=== PATIENT | female | born 1970 | race Two or more races ===

== ENCOUNTER 2017-11-26 01:43 | Emergency (ER) | payer MEDICAID ==
[~2017-11-26] VITALS: Ht 157.5 cm; Wt 60.3 kg
[2017-11-26] MEDS ORDERED: NKM (01:52)
[2017-11-26] MEDS ORDERED: Dexamethasone 4mg/ml vial IVP ONE (02:00)
[2017-11-26] MEDS ORDERED: Acetaminophen 500mg (ES) tab ORAL ONE (02:00)
[2017-11-26] MEDS ORDERED: Ketorolac 30mg Inj IV ONE (02:00)
[2017-11-26] MEDS ORDERED: cefTRIAXone 1 GM in NS 55 ML IVPB ONE (02:00)
--- NOTE | 2017-11-26 02:02 | Emergency Room Report ---
History of Present Illness General Chief Complaint: Fever Source: Patient Present Illness HPI Is a 47-year-old female with no significant past medical history. She presents with chief complaint of fever, headache, sore throat. Onset this afternoon. Pain is 10 out of 10. Worse with swallowing. No cough congestion. No nausea no vomiting. No diarrhea. No sick contact. Allergies: Coded Allergies: No Known Allergies (Unverified , 11/26/17) Patient History Past Medical History: none, see triage record, old chart reviewed Past Surgical History: none Pertinent Family History: none Social History: Denies: smoking Last Menstrual Period: 10/31/17 Now: No Immunizations: other Reviewed Nursing Documentation: PMH: Agreed; PSxH: Agreed Nursing Documentation-PMH Past Medical History: No Stated History Review of Systems Constitutional: Reports: fever Eye: Denies: eye pain, blurred vision ENT: Reports: throat pain; Denies: ear pain, nose congestion, throat swelling Respiratory: Denies: cough, shortness of breath Cardiovascular: Denies: chest pain, palpitations Gastrointestinal: Denies: abdominal pain, diarrhea, nausea, vomiting Musculoskeletal: Denies: back pain, joint pain Skin: Denies: rash Neurological: Reports: headache; Denies: numbness Endocrine: Denies: increased thirst, increased urine Hematologic/Lymphatic: Denies: easy bruising All Other Systems: negative except mentioned in HPI Physical Exam Vital Signs Date Time Temp Pulse Resp B/P (MAP) Pulse Ox O2 Delivery O2 Flow Rate FiO2 11/26/17 01:47 98.8 133 22 128/73 96 Room Air 98.8 vitals with tachycardia Sp02 EP Interpretation: reviewed, normal General Appearance: well appearing, no apparent distress, alert Head: normocephalic, atraumatic Eyes: bilateral eye PERRL, bilateral eye EOMI ENT: hearing grossly normal, tonsillar swelling, pharyngeal erythema, tonsillar exudate, other - No trismus Neck: full range of motion, supple, no meningismus, other - Cervical adenopathy and tenderness Respiratory: chest non-tender, lungs clear, normal breath sounds Cardiovascular #1: regular rate, rhythm, no murmur Gastrointestinal: normal bowel sounds, non tender, no mass, no organomegaly, no bruit, non-distended Musculoskeletal: back normal, gait/station normal, normal range of motion Neurologic: alert, oriented x3 Psychiatric: mood/affect normal Skin: warm/dry, other - Warm to the touch Medical Decision Making Diagnostic Impression: Primary Impression: Acute tonsillitis Qualified Codes: J03.90 - Acute tonsillitis, unspecified ER Course Patient presents with fever and exudative tonsillitis. By [facility] criteria, she probably has strep tonsillitis. No evidence of retropharyngeal abscess, peritonsillar abscess or Jose L angina. She felt better now. We'll discharge home. Dose of antibiotics given here. Last Vital Signs Date Time Temp Pulse Resp B/P (MAP) Pulse Ox O2 Delivery O2 Flow Rate FiO2 11/26/17 01:47 98.8 133 22 128/73 96 Room Air 98.8 Status: improved Disposition: HOME, SELF-CARE Condition: Stable Scripts Amoxicillin/Potassium Clav 875-125* (AUGMENTIN 875-125 TABLET*) 1 Each Tablet 1 TAB ORAL TWICE A DAY, #14 TAB Prov: TALA ARRIOLA M.D. 11/26/17 Ibuprofen* (MOTRIN*) 600 Mg Tablet 600 MG ORAL THREE TIMES A DAY, #30 TAB 0 Refills Prov: TALA ARRIOLA M.D. 11/26/17 Additional Instructions: follow-up with your DrBryce In 2-3 days. Increase fluids. Salt water gargle. Return if worse. TALA ARRIOLA M.D. Nov 26, 2017 02:02
[2017-11-26 02:10] VITALS: BP 128/73
[2017-11-26] MEDS ORDERED: AUGMENTIN 875-1 EAC1 ORAL (02:54)
[2017-11-26] MEDS ORDERED: IBUPROFEN600 MG ORAL (02:54)
[2017-11-26 03:02] VITALS: BP 110/52
[2017-11-26 03:03] VITALS: BP 110/52
== END 2017-11-26 03:04 | disposition home or self-care (01) ==
LOC: EMR 02:02
DX: J03.90 Acute tonsillitis, unspecified (principal)
CPT/HCPCS: 96374; 96375; 96376; 99284; J0696; J1100; J1885; 96360

== ENCOUNTER 2018-05-25 01:24 | Emergency (ER) | payer MEDICAID ==
[~2018-05-25] VITALS: Ht 165.1 cm; Wt 67.6 kg
[~2018-05-25 01:24] MED LIST: AUGMENTIN 875-1 EAC1 ORAL; IBUPROFEN600 MG ORAL; NKM
[2018-05-25 01:30] VITALS: BP 134/88
[2018-05-25] MEDS ORDERED: IRON159 MG PO (01:37)
[2018-05-25] MEDS ORDERED: DiphenhydrAMINE 50mg/ml Inj IVP ONE (01:45)
--- NOTE | 2018-05-25 01:46 | Emergency Room Report ---
History of Present Illness General Chief Complaint: Allergic Reaction Source: Patient Present Illness HPI Patient 47-year-old female presented after increased facial swelling and generalized body rash. Patient reports having recently been taking ibuprofen as well as iron. She reports having similar symptoms multiple times for the past month. She denies any vomiting. She denies any difficulty breathing. She reports having increased lip swelling.The patient not currently taking any antihistamines. Allergies: Coded Allergies: No Known Allergies (Unverified , 11/26/17) Patient History Last Menstrual Period: 05/02/2018 Now: No Reviewed Nursing Documentation: PMH: Agreed; PSxH: Agreed Nursing Documentation-PMH Past Medical History: No History, Except For Hx Cardiac Problems: No - iron anemia Review of Systems All Other Systems: negative except mentioned in HPI Physical Exam Vital Signs Date Time Temp Pulse Resp B/P (MAP) Pulse Ox O2 Delivery O2 Flow Rate FiO2 05/25/18 01:32 98.1 103 16 124/64 100 Room Air Sp02 EP Interpretation: reviewed, normal General Appearance: normal inspection, well appearing, no apparent distress, alert, GCS 15, non-toxic Head: atraumatic ENT: normal ENT inspection, hearing grossly normal, normal voice, other - lower lip swelling and facial swelling moderate Neck: normal inspection, full range of motion, supple, no bony tend Respiratory: normal inspection, lungs clear, normal breath sounds, no respiratory distress, no retraction, no wheezing Cardiovascular #1: regular rate, rhythm, no edema Gastrointestinal: normal inspection, normal bowel sounds, non tender, soft, no guarding, no hernia Genitourinary: no CVA tenderness Musculoskeletal: normal inspection, back normal, normal range of motion Neurologic: normal inspection, alert, oriented x3, responsive, 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 Differential diagnosis included was not limited to angioedema, Chadwick-Moe syndrome, urticaria, erythema multiforme , contact dermatitis. Patient's benign exam and does not appear to require any further imaging or laboratory testing at this time. Patient was given steroids as well as IV antihistamines.Patient was noted to have improvement in her symptoms. The patient is alert and emergency department and showed improvement in lip swelling. The patient was given prescription for steroids as well as antihistamines and was advised to continue use of antihistamines until this resolved. Patient was advised to recheck with her primary care physician in one to 2 days. She advised to avoid ibuprofen. Last Vital Signs Date Time Temp Pulse Resp B/P (MAP) Pulse Ox O2 Delivery O2 Flow Rate FiO2 05/25/18 01:32 98.1 103 16 124/64 100 Room Air Status: improved Disposition: HOME, SELF-CARE Condition: Stable Scripts Famotidine (PEPCID AC) 20 Mg Tablet 20 MG PO DAILY, #30 TAB Prov: Randall Ann MD 05/25/18 Diphenhydramine Hcl* (BENADRYL*) 25 Mg Capsule 25 MG ORAL Q6H PRN for Itching, #30 CAP Prov: Randall Ann MD 05/25/18 Prednisone* (PREDNISONE*) 20 Mg Tablet 60 MG ORAL DAILY, #15 TAB Prov: Randall Ann MD 05/25/18 Randall Ann MD May 25, 2018 01:46
[2018-05-25] MEDS ORDERED: PEPCID AC20 M2 PO (02:45)
[2018-05-25] MEDS ORDERED: PREDNISONE20 MG ORAL (02:45)
[2018-05-25] MEDS ORDERED: BENADRYL25 MG ORAL (02:45)
[2018-05-25 03:20] VITALS: BP 111/72
== END 2018-05-25 03:30 | disposition home or self-care (01) ==
LOC: EMR 01:45
DX: T78.40XA Allergy, unspecified, initial encounter (principal); X58.XXXA Exposure to other specified factors, initial encounter
CPT/HCPCS: 81025; 96374; 96375; 99284; J1200; J7512; S0028

== ENCOUNTER 2019-03-10 03:44 | Emergency (ER) | payer MEDICAID ==
[~2019-03-10] VITALS: Ht 162.6 cm; Wt 65.8 kg
[~2019-03-10 03:44] MED LIST changes: +BENADRYL25 MG ORAL; +IRON159 MG PO; +PEPCID AC20 M2 PO; +PREDNISONE20 MG ORAL
--- NOTE | 2019-03-10 03:59 | Emergency Room Report ---
History of Present Illness General Chief Complaint: Abdominal Pain Source: Patient Present Illness HPI Is a 48-year-old female with no past medical history patient presents with chief complaint of abdominal pain with diarrhea. Onset for last couple days. Worsened tonight after dinner. Her 2 kids are here for the same thing. No vomiting. Has loose and watery stool. No fever chills but no nausea no vomiting. Pain is crampy. 7 out of 10. Allergies: Coded Allergies: No Known Allergies (Unverified , 11/26/17) Patient History Past Medical History: see triage record, old chart reviewed Past Surgical History: none Pertinent Family History: none Social History: Denies: smoking Now: No Immunizations: other Reviewed Nursing Documentation: PMH: Agreed; PSxH: Agreed Nursing Documentation-PMH Past Medical History: No History, Except For Hx Cardiac Problems: No - iron anemia Review of Systems Eye: Denies: eye pain, blurred vision ENT: Denies: ear pain, nose congestion, throat swelling Respiratory: Denies: cough, shortness of breath Cardiovascular: Denies: chest pain, palpitations Gastrointestinal: Reports: abdominal pain, diarrhea; Denies: nausea, vomiting Musculoskeletal: Denies: back pain, joint pain Skin: Denies: rash Neurological: Denies: headache, numbness Endocrine: Denies: increased thirst, increased urine Hematologic/Lymphatic: Denies: easy bruising All Other Systems: negative except mentioned in HPI Physical Exam Vital Signs Date Time Temp Pulse Resp B/P (MAP) Pulse Ox O2 Delivery O2 Flow Rate FiO2 03/10/19 03:50 98.6 98 18 123/76 (92) 98 Vitals normal Sp02 EP Interpretation: reviewed, normal General Appearance: well appearing, no apparent distress, alert Head: normocephalic, atraumatic Eyes: bilateral eye PERRL, bilateral eye EOMI ENT: hearing grossly normal, normal pharynx Neck: full range of motion, supple, no meningismus Respiratory: chest non-tender, lungs clear, normal breath sounds Cardiovascular #1: regular rate, rhythm, no murmur Gastrointestinal: no mass, no organomegaly, no bruit, non-distended, abnormal bowel sounds - Hyperactive, tenderness - Diffuse Musculoskeletal: back normal, gait/station normal, normal range of motion Psychiatric: mood/affect normal Medical Decision Making Diagnostic Impression: Primary Impression: Abdominal pain Qualified Codes: R10.84 - Generalized abdominal pain Additional Impression: Diarrhea Qualified Codes: R19.7 - Diarrhea, unspecified ER Course Patient with abdominal pain and diarrhea. No evidence of acute abdomen or obstruction. Whole family has the same thing. Most likely gastroenteritis versus food poisoning. Will discharge home. Last Vital Signs Date Time Temp Pulse Resp B/P (MAP) Pulse Ox O2 Delivery O2 Flow Rate FiO2 03/10/19 03:50 98.6 98 18 123/76 (92) 98 Status: improved Disposition: HOME, SELF-CARE Condition: Stable Scripts Ibuprofen* (MOTRIN*) 600 Mg Tablet 600 MG ORAL THREE TIMES A DAY, #30 TAB 0 Refills Prov: Jonathan More MD 03/10/19 Referrals: NON PHYSICIAN (PCP) Additional Instructions: Follow up with your doctor in 7 days. Return if symptoms worsen. Jonathan More MD Mar 10, 2019 03:59
[2019-03-10] MEDS ORDERED: Mylanta II UD 30ml ORAL ONE (04:00)
[2019-03-10 04:45] VITALS: BP 119/71
[2019-03-10] MEDS ORDERED: IBUPROFEN600 MG ORAL (04:52)
== END 2019-03-10 05:00 | disposition home or self-care (01) ==
LOC: EMR 03:55
DX: R10.84 Generalized abdominal pain (principal); R19.7 Diarrhea, unspecified
CPT/HCPCS: 99282